=== PATIENT | male | born 1985 | race Caucasian/White ===

== ENCOUNTER 2021-07-14 02:34 | Observation (INO) | payer OTHER ==
[~2021-07-14] VITALS: Ht 165.1 cm; Wt 81.6 kg
[2021-07-14 03:24] LABS: HEMOGLOBIN 14.7 gm/dl (14.0-17.5); RED BLOOD COUNT 4.78 M/UL (4.20-5.50); WHITE BLOOD COUNT 13.6 K/UL (4.5-11.0)
[2021-07-14 03:48] LABS: BUN/CREATININE RATIO 15 (0-10)
[2021-07-14] MEDS ORDERED: FLONASE 0.05% N16 GM (06:18)
== END 2021-07-16 09:30 | disposition home or self-care (01) ==
LOC: ER1 02:34 → M/S 03:40 → CDU 03:40 → M/S 05:15
PROVIDERS: Physician Assistant Medical; ADMIT Orthopaedic Surgery
PROC: 0PSL04Z Reposition Left Ulna with Internal Fixation Device, Open Approach (ICD-10-PCS; 2021-07-14)
PROC: 3E0T3BZ Introduction of Anesthetic Agent into Peripheral Nerves and Plexi, Percutaneous Approach (ICD-10-PCS; 2021-07-14)
PROC: 0PSJ04Z Reposition Left Radius with Internal Fixation Device, Open Approach (ICD-10-PCS; principal; 2021-07-14 14:09)
DX: S52.602A Unspecified fracture of lower end of left ulna, initial encounter for closed fracture (principal); S52.502A Unspecified fracture of the lower end of left radius, initial encounter for closed fracture; Z20.822 Contact with and (suspected) exposure to COVID-19; W31.82XA Contact with other commercial machinery, initial encounter; Y99.0 Civilian activity done for income or pay
CPT/HCPCS: 29125; 36415; 73060; 73090; 73130; 76000; 80053; 85025; 85610; 85730; 90471; 90714; 96374; 96375; 96376; 99284; C1713; G0378; J0690; J1100; J1170; J2001; J2250; J2270; J2405; J2704; J2795; J3010; J7120; U0002